=== PATIENT | female | born 1980 ===

== ENCOUNTER → 2021-05-14 11:14 | Outpatient (CLI) | payer OTHER, MEDICAID, SELFPAY ==
[2021-05-14 18:57] LABS: Add Manual Diff / Slide Review NO; Basophils Absolute Auto 0 /uL (0-100); Basophils Percent Auto 0.6 % (0-2); Eosinophils Absolute Auto 200 /uL (0-450); Eosinophils Percent Auto 4.4 % (2-4); Hematocrit 45.5 % (36-46); Hemoglobin 15.3 g/dL (12.0-16.0); Lymphocytes Absolute Auto 1500 /uL (1100-4500); Lymphocytes Percent Auto 27.7 % (25-40); Mean Corpuscular HGB Conc 33.6 % (30-36); Mean Corpuscular Hemoglobin 33.2 PG (26-34); Mean Corpuscular Volume 99.1 fL (80-100); Monocytes Absolute Auto 500 /uL (0-900); Monocytes Percent Auto 8.4 % (3-14); Neutrophils Absolute Auto 3200 /uL (1500-7000); Neutrophils Percent Auto 58.9 % (50-75); Platelet Count 321 X10^3/uL (150-400); White Blood Cell Count 5.4 X10^3/uL (4.5-11.0)
[2021-05-14 19:13] LABS: Alanine Aminotransferase 25 IU/L (<35); Albumin 4.7 g/dL (3.5-5.0); Albumin Globulin Ratio 1.7 (1.0-2.8); Alkaline Phosphatase 68 U/L (38-126); Aspartate Aminotransferase 31 IU/L (14-36); BUN Creatinine Ratio 11.1 (6-22); Bilirubin Total 0.6 mg/dL (0.2-1.3); Blood Urea Nitrogen 7 mg/dL (7-17); C-Reactive Protein Quant < 0.5 mg/dL (<1.0); Calcium 9.8 mg/dL (8.4-10.2); Carbon Dioxide 28 mmol/L (22-32); Chloride 100 mmol/L (98-107); Estimated Glomerular Filt Rate > 60.0 mL/min (>60); Globulin 2.8 g/dL (1.7-4.1); Glucose 66 mg/dL (70-100); HEMOLYSIS < 15 (0-50); Potassium 3.9 mmol/L (3.4-5.1); Sodium 139 mmol/L (137-145); Total Protein 7.5 g/dL (6.3-8.2)
[2021-05-14 19:27] LABS: Vitamin D 25 Hydroxy (D3) 42.1 ng/mL (30.0-100.0)
[2021-05-14 19:54] LABS: Vitamin B12 521 pg/mL (239-931)
[2021-05-14 21:24] LABS: Erythrocyte Sedimentation Rate 2 MM/HR (0-20)
== END ==
PROVIDERS: PCP Physician Assistant Medical; Referring Provider Physician Assistant Medical; Visit Provider Physician Assistant Medical
DX: D84.9 Immunodeficiency, unspecified (principal); E53.8 Deficiency of other specified B group vitamins; E55.9 Vitamin D deficiency, unspecified; E61.0 Copper deficiency; K50.90 Crohn's disease, unspecified, without complications; R53.83 Other fatigue
CPT/HCPCS: 80053; 82306; 82607; 84443; 85025; 85651; 86140

== ENCOUNTER → 2021-07-12 10:16 | Outpatient (CLI) | payer OTHER, MEDICAID, SELFPAY ==
[2021-07-12 21:03] LABS: COVID19 - ORCAS (NP or Nasal) Negative (Negative)
== END ==
PROVIDERS: PCP Physician Assistant Medical; Visit Provider Family Medicine
DX: Z20.822 Contact with and (suspected) exposure to COVID-19 (principal)
CPT/HCPCS: C9803; U0003

== ENCOUNTER → 2021-10-18 13:54 | Outpatient (CLI) | payer OTHER, MEDICAID, SELFPAY | PROVIDERS: PCP Physician Assistant Medical; Visit Provider Family Medicine | DX: R30.0 Dysuria (principal) | CPT/HCPCS: 81002; 87086 ==